=== PATIENT | female | born 1980 | race Caucasian/White ===

== ENCOUNTER 2016-12-03 12:26 | Observation (INO) | payer OTHER ==
[~2016-12-03] VITALS: Ht 170.2 cm; Wt 116.0 kg
[~2016-12-03 12:26] MED LIST: ADDERALL XR 3030 MG; ADDERALL XR 3030 MG PO; AMOXICILLIN500 MG PO; Birth Control; CYMBALTA60 MG PO; FLEXERIL10 MG PO; GABAPENTIN100 MG PO; IBUPROFEN800 MG PO; LAMICTAL100 MG; LAMICTAL200 MG PO; MOBIC7.5 MG PO; MOTRIN800 MG PO; NAPROSYN500 MG PO; NORCO 5/3251 TABLET PO; NORCO 7.5/321 TABLET PO; PEN-VEE K,VEET500 MG PO; PERCOCET 5/31 TABLET PO; PREDNISONE10 MG PO; TOPAMAX100 MG PO; ULTRAM50 MG PO; VALIUM5 MG PO; VENTOLIN HFA18 GM IH; XANAX0.5 MG PO; ZOFRAN4 MG PO
[2016-12-03 17:33] LABS: HEMATOCRIT 41.6 % (36.0-46.0); MCH 29.2 PG (29.0-34.0); MCHC 32.7 G/DL (30.0-36.0); MCV 89.3 FL (83-99); MEAN PLAT.VOLUME 11.2 uM^3 (9.5-12.4); PLATELET COUNT 192 K/uL (156-360); RBC DIS.WIDTH-CV 13.2 % (11.8-14.6); RED BLOOD COUNT 4.66 M/uL (3.80-5.20); WHITE BLOOD COUNT 12.2 K/uL (4.1-10.2)
[2016-12-03 17:46] LABS: CHLORIDE 110 mEq/L (99-109); SODIUM 140 mEq/L (136-147)
[2016-12-03 17:48] LABS: GLUCOSE 88 mg/dL (70-99)
[2016-12-03 17:49] LABS: ANION GAP 8 MEQ/L (2-14)
[2016-12-03 17:52] LABS: GFR ESTIMATE (CALCULATED) > 59 mL/min/
[2016-12-03 17:53] LABS: UREA NITROGEN (BUN) 8 mg/dL (9-23)
[2016-12-03 18:00] LABS: INTER. NORMALIZED RATIO 1.1; PROTHROMBIN TIME 10.7 (9.2-11.2); PTT 27.9 (25-32)
[2016-12-03 18:06] LABS: QUANTITATIVE HCG < 4.0 MIU/ML
[2016-12-03] MEDS ORDERED: CYMBALTA30 MG PO (18:33)
[2016-12-03] MEDS ORDERED: DAILY VITE1 EAC1 PO (18:34)
[2016-12-03 20:36] VITALS: BP 124/73
[2016-12-04 08:15] VITALS: BP 103/64
[2016-12-04 11:20] VITALS: BP 120/76
[2016-12-04 16:33] VITALS: BP 118/64
[2016-12-04 20:05] VITALS: BP 125/68
[2016-12-05 04:41] VITALS: BP 122/73
[2016-12-05 07:06] LABS: HEMATOCRIT 36.6 % (36.0-46.0); MCV 90.4 FL (83-99)
[2016-12-05 07:34] LABS: ANION GAP 7 MEQ/L (2-14); CHLORIDE 103 MEQ/L (99-109); GFR ESTIMATE (CALCULATED) > 59 mL/min/; GLUCOSE 82 mg/dL (70-99); POTASSIUM 3.8 MEQ/L (3.7-5.4); SAMPLE HEMOLYSIS CHECK 0; SAMPLE ICTERIC CHECK 0; SAMPLE LIPEMIA CHECK 0; SODIUM 136 MEQ/L (136-147); UREA NITROGEN (BUN) 6 mg/dL (9-23)
[2016-12-05 07:37] VITALS: BP 128/74
[2016-12-05 11:18] VITALS: BP 128/70
[2016-12-05 14:12] LABS: ADD MIUA? YES; BILIRUBIN NEGATIVE; BLOOD NEGATIVE; COLOR YELLOW ((YELLOW)); GLUCOSE (STRIP) NEGATIVE; KETONES 80; LEUKOCYTES NEGATIVE; NITRITE NEGATIVE; PROTEIN (STRIP) NEGATIVE; SPECIFIC GRAVITY 1.017 (1.000-1.030); UROBILINOGEN 0.2 MG/DL (0.2-1.0)
[2016-12-05 14:31] LABS: BACTERIA RARE /HPF; EPITHELIAL CELLS 1+ /HPF; HYALINE CASTS 0-5 /LPF; MUCUS TRACE /LPF; WHITE BLOOD CELLS 0-5 /HPF (0-5)
[2016-12-05 15:20] VITALS: BP 120/70
[2016-12-05] MEDS ORDERED: SENNA PLUS TAB1 EACH PO (16:56)
[2016-12-05] MEDS ORDERED: OXYCONTIN10 MG PO (16:56)
[2016-12-05] MEDS ORDERED: ENDOCET 5-3251 EACH PO (16:56)
[2016-12-05] MEDS ORDERED: OXYCODONE HCL5 MG PO (16:56)
[2016-12-05] MEDS ORDERED: ERGOCALCIF50000 UNIT PO (17:00)
[2016-12-05] MEDS ORDERED: ECOTRIN325 MG PO (17:01)
== END 2016-12-05 18:40 | disposition home or self-care (01) ==
LOC: EME → EDBD 12:26 → EDOF 18:12 → 3EAST 18:12 → EDOF 18:12 → 3EAST 20:28
PROVIDERS: Emergency Medicine; Orthopaedic Surgery Sports Medicine; Physician Assistant
PROC: 0QSHXZZ Reposition Left Tibia, External Approach (ICD-10-PCS; 2016-12-03)
PROC: 0QSH04Z Reposition Left Tibia with Internal Fixation Device, Open Approach (ICD-10-PCS; principal; 2016-12-04)
DX: S82.852A Displaced trimalleolar fracture of left lower leg, initial encounter for closed fracture (principal); W10.8XXA Fall (on) (from) other stairs and steps, initial encounter; F32.9 Major depressive disorder, single episode, unspecified; F90.0 Attention-deficit hyperactivity disorder, predominantly inattentive type; E66.9 Obesity, unspecified; F17.210 Nicotine dependence, cigarettes, uncomplicated; Z68.41 Body mass index [BMI] 40.0-44.9, adult
CPT/HCPCS: 71010; 73610; 76000; 80048; 81003; 82306; 84702; 85014; 85018; 85027; 85610; 85730; 86850; 86900; 86901; 87086; 93005; 99281; 99285; C1713; G0378; G8978 GP CI; G8979 GP CH; J0690; J1170; J1650; J2250; J2270; J2405; J2795; J3010; J7030; S0020

== ENCOUNTER 2016-12-11 14:17 | Emergency (ER) | payer OTHER ==
[~2016-12-11] VITALS: Ht 170.2 cm; Wt 100.0 kg
[~2016-12-11 14:17] MED LIST changes: +CYMBALTA30 MG PO; +DAILY VITE1 EAC1 PO; +ECOTRIN325 MG PO; +ENDOCET 5-3251 EACH PO; +ERGOCALCIF50000 UNIT PO; +OXYCODONE HCL5 MG PO; +OXYCONTIN10 MG PO; +SENNA PLUS TAB1 EACH PO
[2016-12-11] MEDS ORDERED: PERCOCET 5/31 TABLET PO (14:49)
[2016-12-11 15:05] VITALS: BP 109/97
== END 2016-12-11 15:05 | disposition home or self-care (01) ==
LOC: EME 14:17
DX: S82.402D Unspecified fracture of shaft of left fibula, subsequent encounter for closed fracture with routine healing (principal); F17.200 Nicotine dependence, unspecified, uncomplicated
CPT/HCPCS: 99281; 99284; J3010

== ENCOUNTER 2017-01-06 19:40 | Emergency (ER) | payer OTHER ==
[~2017-01-06] VITALS: Ht 170.2 cm; Wt 100.0 kg
[2017-01-06 21:12] VITALS: BP 141/82
== END 2017-01-06 21:14 | disposition home or self-care (01) ==
LOC: EME 19:40
PROC: 2W0RX1Z Change Splint on Left Lower Leg (ICD-10-PCS; principal; 2017-01-06)
DX: G89.18 Other acute postprocedural pain (principal); S82.892D Other fracture of left lower leg, subsequent encounter for closed fracture with routine healing; W10.9XXD Fall (on) (from) unspecified stairs and steps, subsequent encounter; F17.200 Nicotine dependence, unspecified, uncomplicated
CPT/HCPCS: 99281; 99283

== ENCOUNTER 2017-01-09 22:27 | Emergency (ER) | payer OTHER ==
[~2017-01-09] VITALS: Ht 170.2 cm; Wt 100.0 kg
[2017-01-10 00:18] VITALS: BP 186/93
== END 2017-01-10 00:18 | disposition home or self-care (01) ==
LOC: EME 22:27
PROC: 2W0RX1Z Change Splint on Left Lower Leg (ICD-10-PCS; principal; 2017-01-09)
DX: Z46.89 Encounter for fitting and adjustment of other specified devices (principal)
CPT/HCPCS: 99281; 99283

== ENCOUNTER 2017-01-16 09:01 | Emergency (ER) | payer OTHER ==
[~2017-01-16] VITALS: Ht 172.7 cm; Wt 100.0 kg
[2017-01-16] MEDS ORDERED: LIDODERM 5% P1 PATCH TD (10:47)
[2017-01-16] MEDS ORDERED: FLEXERIL10 MG PO (10:47)
[2017-01-16] MEDS ORDERED: NAPROSYN500 MG PO (10:50)
[2017-01-16 11:00] VITALS: BP 136/93
== END 2017-01-16 11:01 | disposition home or self-care (01) ==
LOC: EME 09:01 → EXP 09:01
DX: S39.012A Strain of muscle, fascia and tendon of lower back, initial encounter (principal); M54.40 Lumbago with sciatica, unspecified side; X50.9XXA Other and unspecified overexertion or strenuous movements or postures, initial encounter; Z98.1 Arthrodesis status
CPT/HCPCS: 72100; 99281; 99285; J1885

== ENCOUNTER 2017-07-29 17:18 | Emergency (ER) | payer OTHER ==
[~2017-07-29] VITALS: Ht 167.6 cm; Wt 109.9 kg
[~2017-07-29 17:18] MED LIST changes: +LIDODERM 5% P1 PATCH TD
[2017-07-29] MEDS ORDERED: MOTRIN600 MG PO (18:46)
[2017-07-29 19:13] VITALS: BP 128/92
== END 2017-07-29 19:28 | disposition home or self-care (01) ==
LOC: EME 17:18
DX: M25.572 Pain in left ankle and joints of left foot (principal)
CPT/HCPCS: 73610; 99281; 99284

== ENCOUNTER 2018-04-15 12:10 | Emergency (ER) | payer OTHER ==
[~2018-04-15] VITALS: Ht 172.7 cm; Wt 107.7 kg
[~2018-04-15 12:10] MED LIST changes: +MOTRIN600 MG PO
[2018-04-15] MEDS ORDERED: NORCO 5/3251 TABLET PO (14:00)
[2018-04-15 14:05] VITALS: BP 122/85
== END 2018-04-15 14:14 | disposition home or self-care (01) ==
LOC: EME 12:10
DX: K08.89 Other specified disorders of teeth and supporting structures (principal); F17.200 Nicotine dependence, unspecified, uncomplicated; Z98.890 Other specified postprocedural states
CPT/HCPCS: 99281; 99284

== ENCOUNTER 2018-05-04 18:00 | Emergency (ER) | payer OTHER ==
[~2018-05-04] VITALS: Ht 170.2 cm; Wt 107.5 kg
[2018-05-04] MEDS ORDERED: NORCO 5/3251 TABLET PO (19:15)
[2018-05-04 19:23] VITALS: BP 135/98
== END 2018-05-04 19:23 | disposition home or self-care (01) ==
LOC: EME 18:00
DX: K08.89 Other specified disorders of teeth and supporting structures (principal); Z98.890 Other specified postprocedural states; F31.9 Bipolar disorder, unspecified; F32.9 Major depressive disorder, single episode, unspecified; Z72.0 Tobacco use
CPT/HCPCS: 99281; 99284